=== PATIENT | female | born 1980 | race Hispanic/Latino ===

== ENCOUNTER 2020-02-04 18:08 | Emergency (ER) | payer SELFPAY ==
[~2020-02-04] VITALS: Ht 152.4 cm; Wt 82.6 kg
[~2020-02-04 18:08] MED LIST: IBUPROFEN200 MG PO
--- NOTE | 2020-02-04 18:35 | Emergency Department Note ---
History of Present Illnes History of Present Illness Chief Complaint: COVID PUI History of Present Illness This is a 39 year old female arrives to the ED with cough fever and generalized malaise, states her Covid test is negative. Event Marketing Representative Required: No Onset (how long ago): day(s) Onset quality: gradual Duration (how long): day(s) Timing of current episode: constant Progression: worsening Chronicity: new Relieving factors: none Associated symptoms: Reports fever/chills Past Medical/Family History Physician Review I have reviewed the patient's past medical and family history. Any updates have been documented here. Past Medical History Past Medical History: Asthma Other Medical History: PERICARDITIS Other Surgery: IMPLANON REMOVAL Social History Physically hurt or threatened: No Other Last Tetanus: UNKNOWN Review of Systems Review of Systems Constitutional: Reports as per HPI, Reports fever, Reports malaise, Reports weakness EENTM: Reports no symptoms Cardiovascular: Reports no symptoms Respiratory: Reports as per HPI Gastrointestinal: Reports no symptoms Genitourinary: Reports no symptoms Musculoskeletal: Reports no symptoms Integumentary: Reports no symptoms Neurological: Reports no symptoms Psychological: Reports no symptoms Endocrine: Reports no symptoms Hematological/Lymphatic: Reports no symptoms Physical Exam Related Data Allergies: Coded Allergies: No Known Drug Allergies (Verified Allergy, Unknown, 05/07/16) Physical Exam CONSTITUTIONAL Constitutional: Present well-developed, Present well-nourished HENT HENT: Present normocephalic, Present atraumatic, Present oropharynx clear/moist, Present nose normal HENT L/R: Present left ext ear normal, Present right ext ear normal EYES Eyes: Reports PERRL, Reports conjunctivae normal NECK Neck: Present ROM normal PULMONARY Pulmonary: Present effort normal, Present breath sounds normal CARDIOVASCULAR Cardiovascular: Present regular rhythm, Present heart sounds normal, Present capillary refill normal, Present normal rate GASTROINTESTINAL Abdominal: Present soft, Present nontender, Present bowel sounds normal GENITOURINARY Genitourinary: Present exam deferred SKIN Skin: Present warm, Present dry MUSCULOSKELETAL Musculoskeletal: Present ROM normal NEUROLOGICAL Neurological: Present alert, Present oriented x 3, Present no gross motor or sensory deficits PSYCHOLOGICAL Psychological: Present mood/affect normal, Present judgement normal Assessment & Plan Medical Decision Making MDM 39-year-old well-appearing female arrives to the ED with complaints of cough fever loss of taste and smell. Patient is clinically presenting with signs and symptoms consistent with Covid 19. Patient informed she is positive until proven otherwise. Patient's oxygen saturation remained 99% even on exertion, no evidence of tachypnea or dyspnea noted in the ED. Spoke present length about the importance of sleeping on his stomach and rotating from side to side. Z-Juan, signs and symptoms for return discussed. In the light of the Covid pandemic, disaster medicine care was given- patient understands why he was not tested for Covid 19 in the ED, no indications for a chest x-ray at this time given normal oxygen saturation and respiratory status. Assessment & Plan Final Impression: (1) COVID-19 Depart Disposition: HOME, SELF-USP Meds Reported Medications Ibuprofen (IBUPROFEN) 200 Mg Capsule, 200 MG PO TID, TAB 05/07/16 AURE PARNELL DO Feb 04, 2020 18:35
== END 2020-02-04 18:43 | disposition home or self-care (01) ==
LOC: ER 18:33
DX: U07.1 COVID-19 (principal); R05 Cough; R06.00 Dyspnea, unspecified; R53.81 Other malaise
CPT/HCPCS: 99282

== ENCOUNTER 2020-06-22 22:40 | Emergency (ER) | payer MEDICARE ==
[~2020-06-22] VITALS: Ht 152.4 cm; Wt 83.9 kg
== END 2020-06-22 23:15 | disposition home or self-care (01) ==
LOC: ER 23:10
DX: R03.0 Elevated blood-pressure reading, without diagnosis of hypertension (principal); R51.9 Headache, unspecified; J45.909 Unspecified asthma, uncomplicated; I31.9 Disease of pericardium, unspecified
CPT/HCPCS: 99283

== ENCOUNTER 2022-06-30 17:01 | Emergency (ER) | payer OTHER ==
[~2022-06-30] VITALS: Ht 154.9 cm; Wt 83.5 kg
[2022-06-30 18:14] LABS: HIV 1&2 AB SCREEN NON-REACTIVE (NONREACTIVE)
== END 2022-06-30 18:35 | disposition home or self-care (01) ==
LOC: ER 17:20
DX: S61.232A Puncture wound without foreign body of right middle finger without damage to nail, initial encounter (principal); J45.909 Unspecified asthma, uncomplicated; W45.8XXA Other foreign body or object entering through skin, initial encounter; Y93.89 Activity, other specified; Y92.89 Other specified places as the place of occurrence of the external cause; Y99.8 Other external cause status
CPT/HCPCS: 36415; 86706; 87340; 87390; 99284; G0433; G0435